=== PATIENT | female | born 1935 | race Caucasian/White ===

== ENCOUNTER 2020-08-16 13:27 | Inpatient (IN) | payer OTHER, MEDICARE ==
[~2020-08-16] VITALS: Ht 160 cm; Wt 54.8 kg
[2020-08-16] MEDS ORDERED: ASA81BEC PO (17:18)
[2020-08-16] MEDS ORDERED: LIPITOR 40 MG T40 M1 PO (17:18)
[2020-08-16] MEDS ORDERED: TYLENOL325 M1 PO (17:18)
[2020-08-16] MEDS ORDERED: CALCIUM500 MG PO (17:19)
[2020-08-16] MEDS ORDERED: FLEXERIL PO (17:19)
[2020-08-16] MEDS ORDERED: LEVO-T100 MCG PO (17:20)
[2020-08-16] MEDS ORDERED: FISH OIL 1,0001 EAC9 PO (17:20)
[2020-08-16] MEDS ORDERED: LAMOTRIGINE250 MG PO (17:20)
[2020-08-16] MEDS ORDERED: DULCOLAX STOOL100 M1 PO (17:20)
[2020-08-16] MEDS ORDERED: MIRALAX119 GM PO (17:21)
[2020-08-16] MEDS ORDERED: TOPROL XL25 MG PO (17:21)
[2020-08-16] MEDS ORDERED: LORAZEPAM 1 MG T1 MG PO (17:21)
[2020-08-16] MEDS ORDERED: MUCINEX FAST-M1 EAC8 PO (17:23)
[2020-08-16] MEDS ORDERED: SUPER THERAVIT1 EACH PO (17:23)
[2020-08-16] MEDS ORDERED: PROBIOTIC1 EAC7 PO (17:25)
[2020-08-16] MEDS ORDERED: SERTRALINE HCL100 MG PO (17:25)
[2020-08-16] MEDS ORDERED: OLANZAPINE20 MG PO (17:25)
--- NOTE | 2020-08-17 01:10 | NUR ---
Assumed care on 08/16/20 @ 19:15, in bed awake, alert oriented x0 would not give her name or respond to orientation questions. She began to speak, but it was to say, Hey I told you what I wanted, when she had not said anything at all. Did not participate in her history, preferences or wishes intake. Son who is DPJORDYN Castanon gave consent over the phone to treat, etc. Patient refused to allow this nurse to see her Left heel which has a 3x3 dressing on it. Combatitive with incontinent care, incontinent of bladder. Refused all HS meds to take meds whole with water. Offered meds a second time, crushed and in ice cream, refused the ice cream, saying "I said that I wanted Yogart", which she had not said. Returned with yogart and patient refused that. Seems to seek out a way to do the opposite of what staff is requesting of her. On assessment, Left montalvo has an abrasion. Left great toenail is thick and yellow. Left heel has a dressing on heel. Patient refuses to allow nurse to remove dressing and see heel, kicking and withdrawing foot. Refuses yellow socks, kicks when trying to put socks on. Left upper quadrant of ABD has a bruise on it. Redness on the outer labia, patient would not allow this nurse to assess further for redness.
[2020-08-17 06:47] LABS: CHOLESTEROL 143 mg/dL (<200); HDL CHOLESTEROL 70 mg/dL (>40); LDL CHOLESTEROL 58 mg/dL (<100); TRIGLYCERIDE 79 mg/dL (<150); VLDL 16 mg/dL (<40)
[2020-08-17 08:09] LABS: FOLIC ACID 22.1 ng/mL (8.6-58.9)
[2020-08-17 09:28] VITALS: BP 158/99
--- NOTE | 2020-08-17 10:30 | NUR ---
WOUND CONSULT; THE RIGHT HEEL WAS ASSESSED WITH MUCH DIFFICULTY. THE PATIENT WAS COMBATIVE AND KICKING. THE LEFT HEEL WOUND MEASURES 0.5 X 0.5 X 0.2. THE WOUND IS MASCERATED. THE WOUND BED IS PALE. NO OTHER S/S OF INFECTION. RECOMMENDATION; -XEROFORM, BORDER FOAM CHANGE M/W/F PRN. -PRAFO BOOT AT ALL TIMES. DISCUSSED WITH ARA.
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
--- NOTE | 2020-08-17 22:35 | NUR ---
Assumed care on 08/17/20 @ 19:15, seated in a marquise chair in the day room at a table. Calm, quiet and staring forward. When spoke to looks at speaker, but does not speak or respond. Offered medication mixed in applesauce. Refused spoonfuls of applesauce offered, refused to hold the applesauce and feed herself. Will continue to monitor as per unit protocol for safety and comfort.
[2020-08-17 22:40] VITALS: BP 158/99
[2020-08-18 00:06] LABS: GLYCOHEMOGLOBIN (HGB A1C) 6.1 % (4.8-5.6)
[2020-08-18 05:31] LABS: HEMATOCRIT 37.5 % (37.0-47.0); HEMOGLOBIN 12.5 gm/dL (12.0-15.0); MCH 31.1 pg (26.0-34.0); MCHC 33.3 g/dL (28.0-37.0); MCV 93.6 fL (80.0-100.0); RBC 4.01 mil/uL (4.20-5.00); RDW 13.9 % (10.5-14.5); WBC 9.6 thou/uL (4.0-11.0)
[2020-08-18 06:06] LABS: CALCIUM 10.3 mg/dL (8.5-10.1); CREATININE 1.9 mg/dL (0.6-1.0); MAGNESIUM 2.4 mg/dL (1.8-2.4); POTASSIUM 4.9 mmol/L (3.5-5.1)
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
--- NOTE | 2020-08-18 10:04 | NUR ---
ASSUMED PATIENT CARE AROUND 0700. PT AWAKE. PATIENT WAS COMBATIVE, ARGUMENTATIVE, KICKS WHEN TRIED TO GET OUT OF THE BED TO CHAIR. 2-3 PERSON ASSIST. DIDN'T EAT BREAKFAST, WAS SITTING IN THE CHAIR STARING AT FOOD. TRIED TO FEED, BUT PATIENT RESISTED. REFUSED MEDS, TRIED COUPLE OF TIME, TRIED TO MIX WITH FOOD, PT REFUSED TO TAKE. SKIN ASSESMENTS NOT DONE AT THIS POINT PT WAS KICKING. NOW, SITTING IN THE CHAIR CALMLY AND QUIETELY, FLAT FACE. WILL NOT RESPOND. REFUSED VITAL SIGNS CHECK. WILL CONTINUE TO MONITOR FOR SAFETY.
[2020-08-18 14:33] LABS: URINE BILIRUBIN NEGATIVE (Negative); URINE BLOOD NEGATIVE (Negative); URINE CLARITY CLEAR; URINE COLOR YELLOW; URINE GLUCOSE-RANDOM* NEGATIVE (Negative); URINE KETONES NEGATIVE (Negative); URINE LEUKOCYTES-REFLEX NEGATIVE (Negative); URINE NITRITE-REFLEX NEGATIVE (Negative); URINE PROTEIN (DIPSTICK) 1+ (Negative); URINE SPECIFIC GRAVITY 1.015 (1.005-1.035); URINE UROBILINOGEN 0.2 E.U./dl (0.2-1.0)
[2020-08-18 14:48] LABS: BACTERIA-REFLEX 1-9 Few /HPF (None Seen); CASTS None Seen /LPF (None Seen); CRYSTALS None Seen /LPF (None Seen); SQUAMOUS None Seen /LPF (0-3); URINE RBC None Seen /HPF (NONE SEEN); URINE WBC-REFLEX 0-5 Rare /HPF (0-5)
--- NOTE | 2020-08-18 15:32 | NUR ---
PT CONTINUES TO DEMONSTRATE AGGRESSION TOWARDS MEDICAL STAFF AND REFUSAL TO PARTICIPATE IN CARES OR COMPLY W/PHARMACEUTICAL REGIMEN. REQUEST NEW P.T. ORDERS ONCE PT IS MORE AGREEABLE AND DEEMED APPROPRIATE FOR P.T. INTERVENTIONS.
--- NOTE | 2020-08-18 23:54 | NUR ---
SITTING IN DAYROOM IN GERICHAIR UPON INITAL ASSESSMENT THIS PM AT APPROX 1930. WHEN NURSING INTRODUCED SELF OFFERED NO VERBAL RESPONSE AND AVOIDED EYE CONTACT. FIXED-TENSE FACIAL EXPRESSION. REFUSED 1900 VS PULLING AWAY FROM NURSE WHEN ATTEMPTED TO PUT BP CUFF ON. WHEN APPROACHED WITH HS MEDICATIONS DID NOT ACKNOWLEDE OR LOOK AT NURSE WHEN I EXPLAINED I WOULD PUT HER PILLSS WITH PUDDING AND ATTEMPTED TO OXYHYDROGEN WELDER HER A BITE OF PUDDING WITH NO PILLS IN IT AND SHE REFUSED TO OPEN MOUTH PURSING LIPS TIGHTLY. ASKED IF SHE WAS IN PAIN AND REFUSED TO ANSWER-AT THAT POINT TOOK PUDDING OFF TABLE AND THREW IT AT THIS NURSES FACE. COMPUTER ENGINEER REYES NOTIFIED OF MED REFUSAL AND VS REFUSAL. ASSISTED TO BED AT 0 WITH 4 STAFF ASSISTING-RESISITVE WITH TRANSFER,INCONTINENT CARE AND BLADDER SCAN PERFORMED AT THIS TIME. ATTEMPTING TO HIT,KICK,PINCH AND BITE NURSING STAFF. BLADDER SCAN REVEALED LESS THAN 250CC IN BLADDER. WHEN ATTEMPTED TO TAKE INFLATABLE BOOTS OF BEGAN KICKING. WOUND ASSESSMENT UNABLE TO BE PERFORMED AT THIS TIME. NO BLADDER DISTENSION NOTED ABDOMEN SOFT,NON-TENDER. IS HIGH FALLS RISK. DID TAKE 2 SIPS OF ICE WATER WITH MUCH ENCOURAGEMENT.
--- NOTE | 2020-08-19 08:59 | NUR ---
SW contacted [facility] and did not receive an answer. SW team will continue to follow pt during her stay on this unit.
[2020-08-19 09:39] VITALS: BP 155/88
--- NOTE | 2020-08-19 09:45 | NUR ---
Received msg to call Saida Childs RN at [phone]. Called back at approximately 0845. She stated that she attempted to give meds to pt last evening but she was very resistant and refused. She forgot to document that pt had refused meds on MAY and asked me to place note. Pt resistant to meds this am clamping mouth closed and pulling face away from spoon every time approached. Approached X4 within a 45min time period once with meds whole and the rest of the time with meds crushed in apple sauce. Did take few bites of pineapple for breakfast. Dr. Alan notified, will discuss in treatment team.
[2020-08-19 09:54] LABS: CALCIUM 10.6 mg/dL (8.5-10.1); CREATININE 1.7 mg/dL (0.6-1.0); POTASSIUM 4.8 mmol/L (3.5-5.1)
--- NOTE | 2020-08-19 15:26 | NUR ---
Alert, refusing to speak to questions. Will speak in sentences at times making angry, disparaging comments to staff. Most of the time she is quiet staring straight ahead. When attempt to provide care/give meds she becomes very combative and resistive. No response to questions about SI/HI. No response to orientation questions. Breath sounds clear. Reg HR auscultated. Color pink with brisk capillary refill and palpable peripheral pulses. Brief dry. Bladder scan done at 1100, 831 cc. Straight cath done, retrieved 825 dark yellow urine. Small green brown stool per brief. Erythamatous papular rash in inguinal folds and periarea. Dr. Wahl assessed and ordered Nystatin cream. Active bowel sounds over soft, rounded abdomen. Drsg on heels intact, changed by wound care team. Heel protectors in place. Requires 2 staff to transfer. 1330 #22 g jelco placed on 1st attempt per L hand, withdraws and flushes without difficulty. D5NS hung and infused over 2 hrs. Saline locked. Continues to be resistant to PO meds, grits teeth and pulls head away from spoon. IM meds given per order.
[2020-08-19 19:52] VITALS: BP 175/87
--- NOTE | 2020-08-19 23:13 | NUR ---
1900 ASSUMED CARE OF PATIENT. PATIENT SITTING IN DAY AREA IN [facility] [employer] IN PLACE. HAS SOME BRUISING NOTED ON HANDS, BANDAGE TO LEFT HAND R/T EARLIER IV. AWAKE AND ALERT, POOR EYE CONTACT, DID NOT ANSWER ORIENTATION QUESTIONS, BUT DID STATE "WELL I'VE NEVER IN ALL MY LIFE" WHEN REQUESTED TO SQUEEZE THIS WRITERS HANDS TO ASSESS HAND COAT PRESSER STRENGTH, DID NOT COMPLY. MEDICATIONS ADMINISTERED IN ICE CREAM, NO DIFFICULTY. STATED "IT DOESN'T TASTE LIKE ICE CREAM". NO PAIN VOICED,NO INDICATORS OF PAIN OBSERVED. WILL CONTINUE TO MONITOR.
[2020-08-20 01:37] VITALS: BP 146/82
[2020-08-20 05:09] LABS: ABSOLUTE NEUTROPHILS 8.1 thou/uL (1.4-8.2); BASOPHILS 0.4 % (0.0-2.0); EOSINOPHILS 1.8 % (0.0-3.0); HEMATOCRIT 34.4 % (37.0-47.0); HEMOGLOBIN 11.5 gm/dL (12.0-15.0); LYMPHOCYTES 12.3 % (24.0-44.0); MCH 31.4 pg (26.0-34.0); MCHC 33.4 g/dL (28.0-37.0); MCV 94.2 fL (80.0-100.0); PLATELET COUNT 240 thou/uL (150-400); POLYS 77.5 % (36.0-66.0); RBC 3.65 mil/uL (4.20-5.00); RDW 13.8 % (10.5-14.5); WBC 10.5 thou/uL (4.0-11.0)
[2020-08-20 05:28] LABS: ALBUMIN 3.3 g/dL (3.4-5.0); CALCIUM 9.6 mg/dL (8.5-10.1); CREATININE 1.5 mg/dL (0.6-1.0); MAGNESIUM 2.4 mg/dL (1.8-2.4); PHOSPHORUS 5.1 mg/dL (2.6-4.7); POTASSIUM 4.9 mmol/L (3.5-5.1); TOTAL BILIRUBIN 0.2 mg/dL (0.2-1.0); TOTAL PROTEIN 7.2 g/dL (6.4-8.2)
[2020-08-20 08:50] VITALS: BP 127/61
--- NOTE | 2020-08-20 09:43 | NUR ---
Alert. More verbal today asking for 7up and eating independently. Took meds whole with applesauce with little encouragement. Making appropriate comments about meds but refusing to answer orientation questions. No speech or behavior suggestive of SI/HI. Breath sounds clear. Reg HR auscultated. Color pink with brisk capillary refill and palpable peripheral pulses. Brief dry with exception of stool. Bladder scan 468. Straight cath done, 450 cc dark yellow urine retrieved. Active bowel sounds over soft, rounded abdomen. Moderate soft, brown green stool, colace held. Confluent, pink papular rash over angeline area, around anus and in inguinal fold--significantly improved from yesterday. Cleaned and nystatin cream and then zpaste applied. Currently sitting in group without s/o distress.
[2020-08-20 20:21] VITALS: BP 160/71
--- NOTE | 2020-08-21 04:04 | NUR ---
ASSUMED PT CARE AT AROUND 1915 HRS. PT OBSERVED IN DAY AREA IN [facility]. PT WAS PLEASANT, SMILING I GAVE HER SOME MEDS. SHE TOOK THE MEDS OKAY AND DRANK ATLEAST ABOUT 8 OZ OF WATER. PRAFO BOOTS IN PLACE.
--- NOTE | 2020-08-21 05:04 | NUR ---
ASSUMED CARE OF PT AT 0515.
[2020-08-21 09:54] VITALS: BP 110/86
--- NOTE | 2020-08-21 10:09 | NUR ---
ASSUMED CARE AT 0700 THIS MORNING. PT. LAYING IN HER BED, REFUSED TO GET UP FOR BREAKFAST. SHE PURSED HER LIPS TIGHT WHEN THIS AUDITOR ATTEMPTED TO GIVE HER THE MORNING MEDICATIONS. SHE WAS COMBATIVE WITH VITALS THIS MORNING. SHE IS LYING MOTIONLESS IN HER BED, NOT DOING ANYTHING BUT STARING AT THE CEILING.
[2020-08-21 10:20] VITALS: BP 110/86
--- NOTE | 2020-08-21 14:57 | EKG ---
[address] [address] ELECTROCARDIOGRAM REPORT Name: RAJESH COVINGTON Room #: 517-A [facility]#: [id number] Admission: 08/16/20 Attend Phys: Michael Alan DO Discharge: Date of : 34 Report #: [id number] [facility] Test Date: 2020-08-19 Test Time: 14:12:27 Pat Name: RAJESH COVINGTON Department: Room: [facility] A Gender: F Auto Body Service Mechanic: [id number] : 1935 Requested By: Michael Alan Order Number: [id number] MD: Stu Brown Measurements Intervals [place] Rate: 139 P: 36 MA: 136 QRS: -27 QRSD: 79 T: 174 QT: 282 QTc: 429 Interpretive Statements Sinus tachycardia Borderline left axis deviation Anterior infarct, old Nonspecific T abnormalities No previous ECG available for comparison Electronically Signed On 08-21-2020 14:57:40 CDT by Stu Brown [email or web address] <ELECTRONICALLY SIGNED> By: Stu Brown MD, [facility] 08/21/20 1457 141 11 Stu Brown MD, FACC /EPI
[2020-08-22 07:51] VITALS: BP 139/78
[2020-08-22 08:59] VITALS: BP 139/78
--- NOTE | 2020-08-22 09:19 | NUR ---
WOUND CARE F/U; PT UP IN CHAIR IN DAY ROOM, AWAKE, COOPERATIVE TODAY, WOUND L HEEL HEALING, NO S/S INFECTION, FEET WARM, NO EDEMA, CONTS TO WEAR AIR PRESSURE RELIEF BOOTS, SEE PROCESS INTERVENTION FOR WOUND DETAILS, PINK VIABLE TISSUE PRESENT, CONT OFF LOADING, PRESSURE RELIEF AND NOT SITTING FOR LONG PERIODS RECOMMENDATIONS; CONT CURRENT TX XEROFORM, BORDER FOAM DRSG M/W/F AND PRN, PRESSURE RELIEF BOOTS ON AT ALL TIMES LAMP REPLACER AWARE
--- NOTE | 2020-08-22 09:37 | NUR ---
JACQUELIN faxed updates to [facility] for pt. JACQUELIN team will continue to follow pt during her stay on this unit.
[2020-08-22 19:53] VITALS: BP 138/75
--- NOTE | 2020-08-23 01:52 | NUR ---
PATIENT SAT UP IN DINING ROOM THIS EVENING IN [facility]. SHE SAT AT A TABLE AND CHAIR WAS LOCKED AND CHAIR ALARM WAS ON AND IN PLACE. PATIENT ASKED FOR APPLESAUCE FOR HS SNACK. SHE HAD ONE BITE OF IT. SHE DID DRINK 200CC OF WATER. SHE REFUSED HER HS MEDS THAT WERE CRUSHED IN ICECREAM. PATIENT SITTING QUIETLY BUT IS HATEFUL AND COMBATIVE WITH ASSESSMENT. CONTINUING TO MONITOR.
--- NOTE | 2020-08-23 02:00 | NUR ---
PATIENT WAS BLADDER SCANNED AROUND [address] NOTIFIED THAT SCAN SHOWED 375ML RESIDUAL. DR ORDERED FOR WALSH CATHETER TO BE INSERTED AND BAG HUNG TO DEPENDENT DRAINAGE. PATIENT WAS ALSO PER DR ORDER GIVEN CHLORPROMAZINE 37.5MG IM IN LEFT DELTOID. PATIENT TOLERATED WELL. WALSH 16 POLISH CATHETER WAS INSERTED WITH STERILE MEANS. ORDER OBTAINED BEFORE HAND FOR MANUAL HOLD TO SECURE PATIENT DURING INSERTION. PATIENT TOLERATED WELL. URINE IS CLEAR YELLOW. PATIENT HAS FUNGAL RASH IN PERINEAL AREA. NYSTATIN CREAM APPLIED. PRAFO BOOTS ON BILATERAL FEET. DRESSING ON LEFT HEEL DRY AND INTACT. PATIENT'S FEET ELEVATED OFF BED. PATIENT POSITIONED FOR COMFORT. BED IN LOW POSITION AND BED ALARM IS ON. CONTINUING TO MONITOR.
[2020-08-23 09:33] VITALS: BP 105/58
[2020-08-23 09:35] VITALS: BP 105/58
--- NOTE | 2020-08-23 12:03 | NUR ---
RT Progress Note- Lida has given extremely little engagement in milieu or participation in recreation therapy groups since admission. Upon interaction, Lida simply gives a sharp look and rarely verbalizes. She has been present for passive participation in music and game groups. RISK ADVISOR will continue to encourage engagement.
--- NOTE | 2020-08-23 12:07 | NUR ---
JACQUELIN and Dr. Alan attended a family meeting with Austen and another family meeting. An update was provided including that pt is nearing end of life. Family decided comfort care measures should be initiated. The other family meeting said that she has been talking with [facility] concerning pt; Blane is the liason at [phone]. JACQUELIN spoke with Blane who asked JACQUELIN to fax a referral for pt to [phone]; phone is [phone]. JACQUELIN team will continue to follow pt during her stay on this unit.
--- NOTE | 2020-08-23 16:07 | NUR ---
Assumed pt care at 0700. pt was oriented to self. Assessments completed, vss. Pt ambulates with a w/c. Pt refused all meds. Pt refused all care. No sign of acute distress noted upon assessments. NO c/o of pain this shift. pt refused meals. pt stares at staff and speech writer when spoken to. Dr Alan was notified about pt condition. saw pt. Hospice nurse assessed pt this shift. Pt is currently laying down. Will continue to monitor.
[2020-08-23 23:27] VITALS: BP 105/58
--- NOTE | 2020-08-24 00:04 | NUR ---
Assumed care on 08/23/20 @ 19:15, seated in day room in a marquise chair at a table. Awake and alert, does not answer orientation questions. Speaks minimal amount, but does not seem to answer the question asked. Refuses water, refuses medication crushed in applesauce. Provided 5 mg Morphine Sulfate sublingal which she spat out, unsure how much she got the benefit of. Transferred to bed with x3 assist. Resisted care. Urinary catheter in place, 400 ml of clear yellow output noted. Dressing on left heel c/d/i. Bed in low position, 3 bedrails up, will continue to monitor as per unit protocol for safety and comfort.
--- NOTE | 2020-08-24 08:32 | NUR ---
[facility] staff report to JACQUELIN that pt may be close to ; she has been gurgling and asking for water, but then vomiting the water up. JACQUELIN reviewed pt's nutritional intake and saw she is now refusing all meals. JACQUELIN contacted Dr. Alan who said if Austen is agreeable to pt going to a hospice house, then that would be okay. JACQUELIN contacted Austen. No answer. JACQUELIN left a msg. JACQUELIN team will continue to follow pt during her stay on this unit.
--- NOTE | 2020-08-24 08:41 | NUR ---
Nutrition: pt is comfort care. RD deferring further evals.
[2020-08-24 08:53] VITALS: BP 136/75
--- NOTE | 2020-08-24 09:35 | NUR ---
WOUND CARE F/U; THE WOUND SHOWS IMPROVEMENT TODAY. MUCH LESS DRAINAGE IS CONSIATANT WITH A MORE STABLE WOUND. THE WOUND LOOKS CLINICALLY BETTER. THE PATIENT IS NOW ON A MORE PALLATIVE STATUS PER DR THOMPSON TODAY. RECOMMENDATION; DECREASE DRESSING CHANGES TO 2 TIMES WEEKLY. SATURDAY AND SATURDAY. DISCUSSED WITH RN.
--- NOTE | 2020-08-24 12:40 | NUR ---
JACQUELIN D/C NOTE JACQUELIN faxed discharge docs to [facility]. JACQUELIN will file docs in pt's hospital file. No other needs for SW team to address at this time.
--- NOTE | 2020-08-24 18:55 | NUR ---
Assumed care at 0700. Pt was alert and oriented to self. ASSESSMENTS COMPLETED, VSS. PT REFUSED MEDS AND CARE. AMBULATES WITH A NAJMA CHAIR. PT HAS A WALSH IN. 400 OUTPUT FROM WALSH THIS SHIFT. PT combative with care. No sign of acute distress noted upon assessments. No c/o of pain. pt was D/C AT 1809 VIA STRETCHER. Pt was D/c with d/c instruction, packets, and belongings. pt was transported by [facility]. 1937 Report was called to TALYA AT [facility].
--- NOTE | 2020-08-25 10:38 | D ---
[facility] [place] [address] DISCHARGE SUMMARY Name: RAJESH COVINGTON Room #: 517-[facility] IN ..#: [id number] Admission: 08/16/20 Attend Phys: Kori Alan DO Discharge: 08/24/20 Date of : 33 Report #: [id number] THIS REPORT FOR: cc: FAM - Family physician unknown FAM - Family physician unknown Kori Alan DO ~ DOC #: [id number] KORI Alan DO DATE OF SERVICE: 08/24/2020 ATTENDING PSYCHIATRIST: Kori Alan DO. CEO: Kori Moore MD. DISCHARGE DIAGNOSES: Major neurocognitive disorder, likely due to Alzheimer's disease with behavioral disturbance. The patient has stayed 7 on a global deterioration scale, which is end-stage and hospice qualify, and at this point due to difficulty swallowing. Minimal verbal interaction, gross instability, need for Arthur catheter due to Urinary retention more than incontinence. The patient is discharging to [facility]. All medications and hospice care orders per the [facility]. The patient's condition is terminal, comfort feedings. SIGNIFICANT LABORATORY DATA: Hematology: White count 10.5, H and H 11.5 and 34.4, platelet count 240 on 08/20/2020. Chemistries on 08/20/2020--sodium 146, potassium 4.9, chloride 107, bicarbonate 24, anion gap 15, BUN 54, creatinine 1.5, it had been as high as 1.9; glucose 130. Estimated GFR 33, calcium 9.6, phosphorus 5.1, magnesium 2.4, total bilirubin 0.2, AST 34, ALT 37, alkaline phosphatase 90, total protein 7.0, albumin 3.3. Also, in keeping with HBIPS criteria, lipids this admission, cholesterol 143, LDL 58, triglycerides 79, HDL 70. Vitamin B12 of 976. Folate 22.1. TSH 1.805. Hemoglobin A1c was 6.1, high, but not diabetes qualify. Urinalysis this admission showed 1+ protein, 1-9 bacteria. No culture was triggered. Occult blood from her stool was negative. The patient's medications this admission included lamotrigine for seizure control, also Roxanol, Ativan Intensol but again all those were discontinued due to her end of life situation. REASON FOR ADMISSION: On 08/16/2020, an 85-year-old female sent from [facility]. The patient is incapacitated due to her dementia. Apparently, she had become unresponsive where she was living, brought to [facility], admitted to the hospitalist service. There was significant agitation during the medical admission. HOSPITAL COURSE: The patient was admitted to [facility]. The patient was combative with cares, initially was difficult to get her to participate in things. We had some success with her on a 50 mg t.i.d. [address] [address] DISCHARGE SUMMARY Name: ANGIE COVINGTONESSIE Jenkins Room #: 517-[facility] [place]#: [id number] Admission: 08/16/20 Attend Phys: Kori Alan DO Discharge: 08/24/20 Date of : 33 Report #: [id number] chlorpromazine regimen, which we titrated her up; however, this was discontinued. She had developed significant urinary retention, retaining anywhere from 375 to over 800 mL. At this point, the risks of continuing psychiatric medication were outweighed. We spoke with her family, her son, Austen. They were advised to the hospice situation and agrees to hospice consultation. On day of discharge at [facility] accepted her. At the time of discharge, temperature 36.0, pulse 82, respirations 17, BP 136/75, O2 sat 96%. Musculoskeletal exam --ill appearing Arthur catheter intact, reclined in a Shona chair. MENTAL STATUS EXAM: This is a well-developed, ill-appearing, frail, female apparently stated age. Attention fair. Concentration impaired. Speech minimal. Thought process, thought content really unable to be evaluated. mood/affect, restricted, congruent I got moans from her when I asked her questions on day of discharge, also interestingly at times she would have labored breathing and suddenly become normal, so that was inconsistent. The patient was not self harmful on day of discharge. I was unable to get an answer from her about suicidality or homicidality. Memory not formally tested. Insight is impaired, judgment is impaired. Fund of knowledge quite diminished. Prognosis for this patient is terminal. No code. DO TRISTAN Lanier/MISAEL/KATHRYN <ELECTRONICALLY SIGNED> By: Kori Alan DO 08/25/20 [id number] Kori Alan DO /nt
== END 2020-08-24 18:09 | disposition hospice, inpatient (51) | DRG 57 ==
LOC: SBH
PROVIDERS: Internal Medicine; Nurse Practitioner; ADMIT Psychiatry & Neurology Psychiatry; ATTEND Psychiatry & Neurology Psychiatry
DX: G30.9 Alzheimer's disease, unspecified (principal); F01.51 Vascular dementia, unspecified severity, with behavioral disturbance; N17.9 Acute kidney failure, unspecified; N18.30 Chronic kidney disease, stage 3 unspecified; F02.81 Dementia in other diseases classified elsewhere, unspecified severity, with behavioral disturbance; F32.9 Major depressive disorder, single episode, unspecified; M19.90 Unspecified osteoarthritis, unspecified site; I12.9 Hypertensive chronic kidney disease with stage 1 through stage 4 chronic kidney disease, or unspecified chronic kidney disease; E78.5 Hyperlipidemia, unspecified; E03.9 Hypothyroidism, unspecified; S91.302A Unspecified open wound, left foot, initial encounter; X58.XXXA Exposure to other specified factors, initial encounter; R33.9 Retention of urine, unspecified; E83.52 Hypercalcemia; Z66 Do not resuscitate; Z88.8 Allergy status to other drugs, medicaments and biological substances; Z86.73 Personal history of transient ischemic attack (TIA), and cerebral infarction without residual deficits; Z88.0 Allergy status to penicillin; Y93.89 Activity, other specified; Y92.89 Other specified places as the place of occurrence of the external cause; Y99.8 Other external cause status
CPT/HCPCS: 10880

== ENCOUNTER 2020-08-16 16:29 | Emergency (ER) | payer OTHER, MEDICARE ==
[~2020-08-16] VITALS: Ht 157.5 cm; Wt 52.2 kg
[2020-08-16] MEDS ORDERED: ASA81BEC PO (17:18)
[2020-08-16] MEDS ORDERED: TYLENOL325 M1 PO (17:18)
[2020-08-16] MEDS ORDERED: LIPITOR 40 MG T40 M1 PO (17:18)
[2020-08-16] MEDS ORDERED: CALCIUM500 MG PO (17:19)
[2020-08-16] MEDS ORDERED: FLEXERIL PO (17:19)
[2020-08-16] MEDS ORDERED: LEVO-T100 MCG PO (17:20)
[2020-08-16] MEDS ORDERED: DULCOLAX STOOL100 M1 PO (17:20)
[2020-08-16] MEDS ORDERED: LAMOTRIGINE250 MG PO (17:20)
[2020-08-16] MEDS ORDERED: FISH OIL 1,0001 EAC9 PO (17:20)
[2020-08-16] MEDS ORDERED: MIRALAX119 GM PO (17:21)
[2020-08-16] MEDS ORDERED: LORAZEPAM 1 MG T1 MG PO (17:21)
[2020-08-16] MEDS ORDERED: TOPROL XL25 MG PO (17:21)
[2020-08-16] MEDS ORDERED: SUPER THERAVIT1 EACH PO (17:23)
[2020-08-16] MEDS ORDERED: MUCINEX FAST-M1 EAC8 PO (17:23)
[2020-08-16] MEDS ORDERED: PROBIOTIC1 EAC7 PO (17:25)
[2020-08-16] MEDS ORDERED: SERTRALINE HCL100 MG PO (17:25)
[2020-08-16] MEDS ORDERED: OLANZAPINE20 MG PO (17:25)
[2020-08-16 17:32] VITALS: BP 132/67
== END 2020-08-16 18:01 ==
LOC: ER 16:29
DX: F03.91 Unspecified dementia, unspecified severity, with behavioral disturbance (principal); Z20.822 Contact with and (suspected) exposure to COVID-19; Z79.82 Long term (current) use of aspirin; Z88.8 Allergy status to other drugs, medicaments and biological substances; Z88.0 Allergy status to penicillin